=== PATIENT | male | born 1940 | race Caucasian/White ===

== ENCOUNTER 2020-05-12 11:46 | Outpatient (REF) | payer MEDICARE, SELFPAY ==
[2020-05-12 13:56] LABS: Alanine Aminotransferase 27 U/L (0-40); Albumin Level 4.3 g/dL (3.5-5.0); Alkaline Phosphatase 53 U/L (39-117); Anion Gap 12 (12-20); Aspartate Amino Transferase 26 U/L (5-37); Bilirubin Total 0.4 mg/dL (0.0-1.0); Blood Urea Nitrogen 20 mg/dL (9-16); Calcium 9.5 mg/dL (8.4-10.2); Carbon Dioxide 30 mmol/L (22-29); Chloride 99 mmol/L (96-108); Estimated Glomerular Filt Rate 51; Glucose Random 128 mg/dL (60-115); Potassium 3.7 mmol/l (3.3-5.1); Sodium 137 mmol/L (135-145); Total Protein 7.1 g/dL (6.5-8.0)
[2020-05-12 14:01] LABS: Estimated Average Glucose 137 mg/dL; Hemoglobin A1C 151.4465 umol/L; Hemoglobin A1c % 6.4 %
[2020-05-12 14:19] LABS: Free T4 (Free Thyroxine) 1.11 ng/dL (0.71-1.85); Thyroid Stimulating Hormone 0.38 uIU/mL (0.32-4.0); Vitamin D 25-OH Total 39.3 ng/mL (>30)
== END 2020-05-12 11:47 | disposition home or self-care (01) ==
LOC: HO.MANLDS 11:46
PROVIDERS: PCP Internal Medicine; Visit Provider Internal Medicine
DX: E11.9 Type 2 diabetes mellitus without complications (principal); E03.9 Hypothyroidism, unspecified
CPT/HCPCS: 80053; 82306; 83036; 84439; 84443

== ENCOUNTER 2020-07-30 07:29 | Outpatient (REF) | payer MEDICARE, SELFPAY ==
[2020-07-30 11:15] LABS: Estimated Average Glucose 143 mg/dL; Hemoglobin A1c % 6.6 %
[2020-07-30 11:43] LABS: Cholesterol 229 mg/dL; HDL Cholesterol 58 mg/dL; LDL Cholesterol Calculated 152 mg/dl; Triglycerides 97 mg/dL
== END 2020-07-30 07:30 | disposition home or self-care (01) ==
LOC: HO.MANLR 07:29
PROVIDERS: PCP Internal Medicine; Visit Provider Internal Medicine
DX: E11.9 Type 2 diabetes mellitus without complications (principal)
CPT/HCPCS: 36415; 80061; 83036

== ENCOUNTER 2020-11-15 08:39 | Outpatient (REF) | payer MEDICARE, SELFPAY ==
[2020-11-15 11:32] LABS: Hematocrit 40.1 % (42-52); Mean Corpuscular HGB Conc 29.9 g/dl (31.0-36.0); Mean Corpuscular Hemoglobin 25.4 pg (27.0-33.0); Mean Corpuscular Volume 84.8 fL (80-98); Mean Platelet Volume 9.8 fL (9.4-12.4); Platelet Count 265 X10*3/uL (160-400); Red Blood Count 4.73 X10*6/uL (4.60-5.80); Red Cell Distribution Width 14.7 % (11.0-16.0); White Blood Count 5.3 X10*3/uL (4.8-10.8)
[2020-11-15 12:02] LABS: Alanine Aminotransferase 25 U/L (0-40); Albumin Level 4.2 g/dL (3.5-5.0); Alkaline Phosphatase 55 U/L (39-117); Anion Gap 14 (12-20); Aspartate Amino Transferase 24 U/L (5-37); Bilirubin Total 0.6 mg/dL (0.0-1.0); Blood Urea Nitrogen 23 mg/dL (9-16); Calcium 9.6 mg/dL (8.4-10.2); Carbon Dioxide 28 mmol/L (22-29); Chloride 100 mmol/L (96-108); Estimated Glomerular Filt Rate 42; Glucose Fasting 125 mg/dL (60-99); Potassium 3.7 mmol/L (3.3-5.1); Sodium 138 mmol/L (135-145); Total Protein 6.7 g/dL (6.5-8.0)
[2020-11-15 12:10] LABS: Free T4 (Free Thyroxine) 1.02 ng/dL (0.71-1.85); Thyroid Stimulating Hormone 1.33 uIU/mL (0.32-4.0)
[2020-11-15 12:20] LABS: Estimated Average Glucose 143 mg/dL; Hemoglobin A1C 152.6925 umol/L; Hemoglobin A1c % 6.6 %
[2020-11-15 12:47] LABS: Prostate Specific Antigen 4.05 ng/mL (<0.05-4.0)
== END 2020-11-15 08:40 | disposition home or self-care (01) ==
LOC: HO.MANLDS 08:39
PROVIDERS: PCP Internal Medicine; Visit Provider Internal Medicine
DX: E11.9 Type 2 diabetes mellitus without complications (principal); I10 Essential (primary) hypertension; E03.9 Hypothyroidism, unspecified
CPT/HCPCS: 36415; 80053; 83036; 84153; 84439; 84443; 85027

== ENCOUNTER 2021-02-07 08:48 | Outpatient (REF) | payer MEDICARE, SELFPAY ==
[2021-02-07 11:13] LABS: Hematocrit 39.7 % (42-52); Mean Corpuscular HGB Conc 30.2 g/dl (31.0-36.0); Mean Corpuscular Hemoglobin 25.2 pg (27.0-33.0); Mean Corpuscular Volume 83.4 fL (80-98); Mean Platelet Volume 10.1 fL (9.4-12.4); Platelet Count 270 X10*3/uL (160-400); Red Blood Count 4.76 X10*6/uL (4.60-5.80); Red Cell Distribution Width 15.1 % (11.0-16.0); White Blood Count 5.6 X10*3/uL (4.8-10.8)
[2021-02-07 11:21] LABS: Estimated Average Glucose 137 mg/dL; Hemoglobin A1c % 6.4 %
[2021-02-07 12:09] LABS: Alanine Aminotransferase 27 U/L (0-40); Albumin Level 4.3 g/dL (3.5-5.0); Alkaline Phosphatase 49 U/L (39-117); Anion Gap 13 (12-20); Aspartate Amino Transferase 23 U/L (5-37); Bilirubin Total 0.6 mg/dL (0.0-1.0); Blood Urea Nitrogen 20 mg/dL (9-16); Calcium 9.9 mg/dL (8.4-10.2); Carbon Dioxide 28 mmol/L (22-29); Chloride 102 mmol/L (96-108); Estimated Glomerular Filt Rate 43; Glucose Random 138 mg/dL (60-115); Sodium 139 mmol/L (135-145); Total Protein 6.9 g/dL (6.5-8.0)
== END 2021-02-07 08:49 | disposition home or self-care (01) ==
LOC: HO.MANLDS 08:48
PROVIDERS: PCP Internal Medicine; Visit Provider Internal Medicine
DX: E11.9 Type 2 diabetes mellitus without complications (principal)
CPT/HCPCS: 36415; 80053; 83036; 85027

== ENCOUNTER 2021-05-17 08:01 | Outpatient (REF) | payer MEDICARE, SELFPAY ==
[2021-05-17 11:24] LABS: Estimated Average Glucose 140 mg/dL; Hemoglobin A1C 145.6029 umol/L; Hemoglobin A1c % 6.5 %
== END 2021-05-17 08:02 | disposition home or self-care (01) ==
LOC: HO.MANLDS 08:01
PROVIDERS: PCP Internal Medicine; Visit Provider Internal Medicine
DX: E11.9 Type 2 diabetes mellitus without complications (principal)
CPT/HCPCS: 36415; 83036

== ENCOUNTER 2021-08-22 14:56 | Outpatient (REF) | payer MEDICARE, SELFPAY ==
[2021-08-22 20:04] LABS: Estimated Average Glucose 143 mg/dL; Hemoglobin A1c % 6.6 %
== END 2021-08-22 14:57 | disposition home or self-care (01) ==
LOC: HO.MANLDS 14:56
PROVIDERS: PCP Internal Medicine; Visit Provider Internal Medicine
DX: E11.9 Type 2 diabetes mellitus without complications (principal)
CPT/HCPCS: 36415; 83036

== ENCOUNTER 2021-12-19 09:39 | Outpatient (REF) | payer MEDICARE, SELFPAY ==
[2021-12-19 11:31] LABS: MANUAL DIFF FLAG NO
[2021-12-19 11:40] LABS: Basophils Percent Auto 0.3 % (0-2); Eosinophils Absolute Auto 0.2 X10*3/uL (0.0-0.4); Eosinophils Percent Auto 3.6 % (0-4); Hematocrit 38.1 % (42.0-52.0); Hemoglobin 11.3 g/dl (14.0-18.0); Imm Gran Abs Auto 0.01 X10*3/uL (0.00-0.03); Imm Gran Pct Auto 0.2 % (0.0-0.4); Lymphocytes Absolute Auto 1.8 X10*3/uL (1.2-4.9); Lymphocytes Percent Auto 29.3 % (20-40); Mean Corpuscular HGB Conc 29.7 g/dl (31.0-36.0); Mean Corpuscular Hemoglobin 23.3 pg (27.0-33.0); Mean Corpuscular Volume 78.6 fL (80.0-98.0); Mean Platelet Volume 9.4 fL (9.4-12.4); Monocytes Absolute Auto 0.7 X10*3/uL (0.1-1.2); Neutrophils Absolute Auto 3.4 x10*3/uL (2.0-8.3); Neutrophils Percent Auto 55.6 % (45-73); Platelet Count 330 X10*3/uL (160-400); Red Blood Count 4.85 X10*6/uL (4.60-5.80); Red Cell Distribution Width 16.6 % (11.0-16.0); White Blood Count 6.2 X10*3/uL (4.8-10.8)
[2021-12-19 12:48] LABS: Erythrocyte Sedimentation Rate 7 MM/HR (0-15)
[2021-12-19 13:04] LABS: Alanine Aminotransferase 31 U/L (0-40); Albumin Level 4.3 g/dL (3.5-5.0); Alkaline Phosphatase 55 U/L (39-117); Anion Gap 12 (12-20); Aspartate Amino Transferase 33 U/L (5-37); Bilirubin Total 0.4 mg/dL (0.0-1.0); Blood Urea Nitrogen 22 mg/dL (9-16); Calcium 9.6 mg/dL (8.4-10.2); Carbon Dioxide 28 mmol/L (22-29); Chloride 101 mmol/L (96-108); Cholesterol 235 mg/dL; Estimated Glomerular Filt Rate 41; Glucose Random 111 mg/dL (60-115); HDL Cholesterol 55 mg/dL; LDL Cholesterol Calculated 157 mg/dl; Potassium 4.2 mmol/L (3.3-5.1); Sodium 137 mmol/L (135-145); Total Protein 7.1 g/dL (6.5-8.0); Triglycerides 119 mg/dL
[2021-12-19 20:36] LABS: Estimated Average Glucose 137 mg/dL; Hemoglobin A1c % 6.4 %
== END 2021-12-19 09:40 | disposition home or self-care (01) ==
LOC: HO.MANLDS 09:39
PROVIDERS: Visit Provider Internal Medicine
DX: E11.9 Type 2 diabetes mellitus without complications (principal)
CPT/HCPCS: 36415; 80053; 80061; 83036; 85025; 85652

== ENCOUNTER 2022-04-17 14:35 | Outpatient (REF) | payer MEDICARE, SELFPAY ==
[2022-04-17 18:51] LABS: Alanine Aminotransferase 33 U/L (0-40); Albumin Level 4.5 g/dL (3.5-5.0); Alkaline Phosphatase 60 U/L (39-117); Anion Gap 17 (12-20); Aspartate Amino Transferase 31 U/L (5-37); Bilirubin Total 0.2 mg/dL (0.0-1.0); Blood Urea Nitrogen 25 mg/dL (9-16); Calcium 9.9 mg/dL (8.4-10.2); Carbon Dioxide 25 mmol/L (22-29); Chloride 101 mmol/L (96-108); Estimated Glomerular Filt Rate 44; Glucose Random 132 mg/dL (60-115); Potassium 4.2 mmol/L (3.3-5.1); Sodium 139 mmol/L (135-145); Total Protein 7.3 g/dL (6.5-8.0)
[2022-04-18 05:12] LABS: Estimated Average Glucose 134 mg/dL; Hemoglobin A1c % 6.3 %
== END 2022-04-17 14:36 | disposition home or self-care (01) ==
LOC: HO.MANLDS 14:35
PROVIDERS: Visit Provider Internal Medicine
DX: Z12.5 Encounter for screening for malignant neoplasm of prostate (principal); E11.9 Type 2 diabetes mellitus without complications
CPT/HCPCS: 36415; 80053; 83036; 84153

== ENCOUNTER 2022-05-29 09:10 | Outpatient (REF) | payer MEDICARE, SELFPAY ==
[2022-05-29 10:49] LABS: MANUAL DIFF FLAG NO
[2022-05-29 10:57] LABS: Basophils Percent Auto 0.2 % (0-2); Eosinophils Absolute Auto 0.2 X10*3/uL (0.0-0.4); Hematocrit 34.8 % (42.0-52.0); Hemoglobin 10.2 g/dl (14.0-18.0); Imm Gran Abs Auto 0.01 X10*3/uL (0.00-0.03); Imm Gran Pct Auto 0.2 % (0.0-0.4); Lymphocytes Absolute Auto 1.4 X10*3/uL (1.2-4.9); Lymphocytes Percent Auto 23.6 % (20-40); Mean Corpuscular HGB Conc 29.3 g/dl (31.0-36.0); Mean Corpuscular Hemoglobin 22.9 pg (27.0-33.0); Mean Platelet Volume 9.6 fL (9.4-12.4); Monocytes Absolute Auto 0.6 X10*3/uL (0.1-1.2); Neutrophils Absolute Auto 3.8 x10*3/uL (2.0-8.3); Platelet Count 331 X10*3/uL (160-400); Red Blood Count 4.46 X10*6/uL (4.60-5.80); Red Cell Distribution Width 16.5 % (11.0-16.0); White Blood Count 6.1 X10*3/uL (4.8-10.8)
[2022-05-29 11:06] LABS: Iron 28 mcg/dL (45-160); Percent Iron Saturation 6 % (15-50); Total Iron Binding Capacity 451 mcg/dL (228-428); Unsaturated Iron Binding 423 ug/dL
[2022-05-29 11:26] LABS: Ferritin 8 ng/mL (20-250)
== END 2022-05-29 09:11 | disposition home or self-care (01) ==
LOC: HO.MANLDS 09:10
PROVIDERS: Visit Provider Physician Assistant
DX: D50.0 Iron deficiency anemia secondary to blood loss (chronic) (principal)
CPT/HCPCS: 36415; 82728; 83540; 85025

== ENCOUNTER 2022-12-12 08:52 | Outpatient (REF) | payer MEDICARE, SELFPAY ==
[2022-12-12 11:18] LABS: MANUAL DIFF FLAG NO
[2022-12-12 11:35] LABS: Basophils Percent Auto 0.3 % (0-2); Eosinophils Absolute Auto 0.2 X10*3/uL (0.0-0.4); Hemoglobin 9.2 g/dl (14.0-18.0); Imm Gran Abs Auto 0.02 X10*3/uL (0.00-0.03); Imm Gran Pct Auto 0.3 % (0.0-0.4); Lymphocytes Absolute Auto 1.2 X10*3/uL (1.2-4.9); Lymphocytes Percent Auto 20.1 % (20-40); Mean Corpuscular HGB Conc 27.9 g/dl (31.0-36.0); Mean Corpuscular Hemoglobin 21.6 pg (27.0-33.0); Mean Corpuscular Volume 77.6 fL (80.0-98.0); Mean Platelet Volume 9.7 fL (9.4-12.4); Monocytes Absolute Auto 0.7 X10*3/uL (0.1-1.2); Monocytes Percent Auto 10.8 % (2-11); Neutrophils Absolute Auto 3.9 x10*3/uL (2.0-8.3); Neutrophils Percent Auto 64.5 % (45-73); Platelet Count 375 X10*3/uL (160-400); Red Blood Count 4.25 X10*6/uL (4.60-5.80); Red Cell Distribution Width 22.2 % (11.0-16.0)
[2022-12-12 11:50] LABS: Estimated Average Glucose 105 mg/dL; Hemoglobin A1c % 5.3 %
== END 2022-12-12 08:53 | disposition home or self-care (01) ==
LOC: HO.MANLDS 08:52
PROVIDERS: Visit Provider Internal Medicine
DX: K92.2 Gastrointestinal hemorrhage, unspecified (principal); E11.9 Type 2 diabetes mellitus without complications
CPT/HCPCS: 36415; 83036; 85025

== ENCOUNTER 2023-01-16 07:41 | Outpatient (REF) | payer MEDICARE, SELFPAY ==
[2023-01-16 12:52] LABS: MANUAL DIFF FLAG NO
[2023-01-16 13:32] LABS: Basophils Percent Auto 0.2 % (0-2); Eosinophils Absolute Auto 0.3 X10*3/uL (0.0-0.4); Eosinophils Percent Auto 4.7 % (0-4); Hemoglobin 9.3 g/dl (14.0-18.0); Imm Gran Abs Auto 0.01 X10*3/uL (0.00-0.03); Imm Gran Pct Auto 0.2 % (0.0-0.4); Lymphocytes Absolute Auto 1.1 X10*3/uL (1.2-4.9); Mean Corpuscular HGB Conc 28.2 g/dl (31.0-36.0); Mean Corpuscular Hemoglobin 22.9 pg (27.0-33.0); Mean Corpuscular Volume 81.1 fL (80.0-98.0); Mean Platelet Volume 9.7 fL (9.4-12.4); Monocytes Absolute Auto 0.5 X10*3/uL (0.1-1.2); Monocytes Percent Auto 8.6 % (2-11); Neutrophils Absolute Auto 3.8 x10*3/uL (2.0-8.3); Neutrophils Percent Auto 67.3 % (45-73); Platelet Count 281 X10*3/uL (160-400); Red Blood Count 4.07 X10*6/uL (4.60-5.80); Red Cell Distribution Width 20.5 % (11.0-16.0); White Blood Count 5.6 X10*3/uL (4.8-10.8)
[2023-01-16 13:42] LABS: Estimated Average Glucose 105 mg/dL; Hemoglobin A1c % 5.3 %
[2023-01-16 14:21] LABS: Ferritin 8 ng/mL (20-250); Iron 11 mcg/dL (45-160); Percent Iron Saturation 3 % (15-50); Total Iron Binding Capacity 320 mcg/dL (228-428); Unsaturated Iron Binding 309 ug/dL
== END 2023-01-16 07:42 | disposition home or self-care (01) ==
LOC: HO.MANLDS 07:41
PROVIDERS: Visit Provider Internal Medicine
DX: K92.2 Gastrointestinal hemorrhage, unspecified (principal); E11.9 Type 2 diabetes mellitus without complications; D50.0 Iron deficiency anemia secondary to blood loss (chronic)
CPT/HCPCS: 36415; 82728; 83036; 83540; 85025

== ENCOUNTER 2023-03-05 09:25 | Outpatient (REF) | payer MEDICARE, SELFPAY ==
[2023-03-05 13:03] LABS: MANUAL DIFF FLAG NO
[2023-03-05 13:41] LABS: Basophils Percent Auto 0.3 % (0-2); Eosinophils Absolute Auto 0.3 X10*3/uL (0.0-0.4); Eosinophils Percent Auto 4.8 % (0-4); Hematocrit 37.5 % (42.0-52.0); Hemoglobin 10.6 g/dl (14.0-18.0); Imm Gran Abs Auto 0.01 X10*3/uL (0.00-0.03); Imm Gran Pct Auto 0.2 % (0.0-0.4); Lymphocytes Absolute Auto 1.6 X10*3/uL (1.2-4.9); Lymphocytes Percent Auto 25.7 % (20-40); Mean Corpuscular HGB Conc 28.3 g/dl (31.0-36.0); Mean Corpuscular Volume 84.8 fL (80.0-98.0); Mean Platelet Volume 9.9 fL (9.4-12.4); Monocytes Absolute Auto 0.6 X10*3/uL (0.1-1.2); Monocytes Percent Auto 10.1 % (2-11); Neutrophils Absolute Auto 3.6 x10*3/uL (2.0-8.3); Neutrophils Percent Auto 58.9 % (45-73); Platelet Count 274 X10*3/uL (160-400); Red Blood Count 4.42 X10*6/uL (4.60-5.80); Red Cell Distribution Width 20.1 % (11.0-16.0)
[2023-03-05 13:42] LABS: Iron 28 mcg/dL (45-160); Percent Iron Saturation 8 % (15-50); Total Iron Binding Capacity 343 mcg/dL (228-428); Unsaturated Iron Binding 315 ug/dL
[2023-03-05 14:02] LABS: Ferritin 22 ng/mL (20-250)
== END 2023-03-05 09:26 | disposition home or self-care (01) ==
LOC: HO.MANLDS 09:25
PROVIDERS: Visit Provider Internal Medicine
DX: D50.9 Iron deficiency anemia, unspecified (principal)
CPT/HCPCS: 36415; 82728; 83540; 85025

== ENCOUNTER 2023-07-13 11:23 | Outpatient (REF) | payer MEDICARE, SELFPAY ==
[2023-07-13 13:23] LABS: MANUAL DIFF FLAG NO
[2023-07-13 13:44] LABS: Basophils Percent Auto 0.2 % (0-2); Eosinophils Absolute Auto 0.1 X10*3/uL (0.0-0.4); Eosinophils Percent Auto 1.7 % (0-4); Hematocrit 42.3 % (42.0-52.0); Hemoglobin 13.9 g/dl (14.0-18.0); Imm Gran Abs Auto 0.02 X10*3/uL (0.00-0.03); Imm Gran Pct Auto 0.4 % (0.0-0.4); Lymphocytes Absolute Auto 1.1 X10*3/uL (1.2-4.9); Lymphocytes Percent Auto 20.4 % (20-40); Mean Corpuscular HGB Conc 32.9 g/dl (31.0-36.0); Mean Corpuscular Hemoglobin 30.5 pg (27.0-33.0); Mean Platelet Volume 9.5 fL (9.4-12.4); Monocytes Absolute Auto 0.5 X10*3/uL (0.1-1.2); Neutrophils Absolute Auto 3.7 x10*3/uL (2.0-8.3); Neutrophils Percent Auto 68.3 % (45-73); Platelet Count 295 X10*3/uL (160-400); Red Blood Count 4.55 X10*6/uL (4.60-5.80); Red Cell Distribution Width 13.5 % (11.0-16.0); White Blood Count 5.5 X10*3/uL (4.8-10.8)
[2023-07-13 14:05] LABS: Estimated Average Glucose 148 mg/dL; Hemoglobin A1c % 6.8 % (<6.0)
[2023-07-13 14:50] LABS: Alanine Aminotransferase 30 U/L (0-40); Albumin Level 3.6 g/dL (3.5-5.0); Alkaline Phosphatase 95 U/L (39-117); Anion Gap 11 (12-20); Aspartate Amino Transferase 28 U/L (5-37); Bilirubin Total 0.6 mg/dL (0.0-1.0); Blood Urea Nitrogen 17 mg/dL (9-16); Calcium 9.2 mg/dL (8.4-10.2); Carbon Dioxide 27 mmol/L (22-29); Chloride 105 mmol/L (96-108); Estimated Glomerular Filt Rate 57; Glucose Random 120 mg/dL (60-115); Potassium 3.8 mmol/L (3.3-5.1); Sodium 139 mmol/L (135-145); Total Protein 6.7 g/dL (6.5-8.0)
== END 2023-07-13 11:24 | disposition home or self-care (01) ==
LOC: HO.MANLDS 11:23
PROVIDERS: Visit Provider Internal Medicine
DX: E11.9 Type 2 diabetes mellitus without complications (principal); K92.2 Gastrointestinal hemorrhage, unspecified
CPT/HCPCS: 36415; 80053; 83036; 85025

== ENCOUNTER 2023-10-22 08:58 | Outpatient (REF) | payer MEDICARE, SELFPAY ==
[2023-10-22 13:11] LABS: MANUAL DIFF FLAG NO
[2023-10-22 13:24] LABS: Basophils Percent Auto 0.2 % (0-2); Eosinophils Absolute Auto 0.2 X10*3/uL (0.0-0.4); Eosinophils Percent Auto 3.4 % (0-4); Hematocrit 44.3 % (42.0-52.0); Hemoglobin 14.4 g/dl (14.0-18.0); Imm Gran Abs Auto 0.02 X10*3/uL (0.00-0.03); Imm Gran Pct Auto 0.3 % (0.0-0.4); Lymphocytes Absolute Auto 1.4 X10*3/uL (1.2-4.9); Lymphocytes Percent Auto 24.6 % (20-40); Mean Corpuscular HGB Conc 32.5 g/dl (31.0-36.0); Mean Corpuscular Hemoglobin 31.9 pg (27.0-33.0); Monocytes Absolute Auto 0.5 X10*3/uL (0.1-1.2); Neutrophils Absolute Auto 3.6 x10*3/uL (2.0-8.3); Neutrophils Percent Auto 62.5 % (45-73); Platelet Count 222 X10*3/uL (160-400); Red Blood Count 4.52 X10*6/uL (4.60-5.80); Red Cell Distribution Width 13.3 % (11.0-16.0); White Blood Count 5.8 X10*3/uL (4.8-10.8)
[2023-10-22 13:45] LABS: Estimated Average Glucose 137 mg/dL; Hemoglobin A1c % 6.4 % (<6.0)
[2023-10-22 14:01] LABS: Alanine Aminotransferase 46 U/L (0-40); Alkaline Phosphatase 78 U/L (39-117); Anion Gap 12 (12-20); Aspartate Amino Transferase 36 U/L (5-37); Bilirubin Total 0.7 mg/dL (0.0-1.0); Blood Urea Nitrogen 21 mg/dL (9-16); Calcium 9.7 mg/dL (8.4-10.2); Carbon Dioxide 29 mmol/L (22-29); Chloride 102 mmol/L (96-108); Estimated Glomerular Filt Rate 56; Glucose Random 183 mg/dL (60-115); Potassium 3.8 mmol/L (3.3-5.1); Sodium 139 mmol/L (135-145); Total Protein 6.8 g/dL (6.5-8.0)
== END 2023-10-22 08:59 | disposition home or self-care (01) ==
LOC: HO.MANLDS 08:58
PROVIDERS: Visit Provider Internal Medicine
DX: E11.9 Type 2 diabetes mellitus without complications (principal); K92.2 Gastrointestinal hemorrhage, unspecified
CPT/HCPCS: 36415; 80053; 83036; 85025

== ENCOUNTER 2023-11-12 14:45 | Outpatient (REF) | payer MEDICARE, SELFPAY ==
[2023-11-12 17:43] LABS: Appearance Urine Clear; Color Urine Yellow; Glucose Urine UA Negative (Negative); Leukocyte Esterase Urine Moderate (2+) (Negative); Nitrite Urine Negative (Negative); UMIC TRIGGER UACC YES; Urine Blood Negative (Negative); Urine Ketones Negative (Negative); Urine Protein Negative (Neg-Trace)
[2023-11-12 17:46] LABS: Bacteria Urine 3+ (None Seen); Hyaline Casts Urine 0-2 /LPF (0-2); RBC Urine 0-2 /HPF (0-2); Squamous Epithelial Cell Urine 0-2 /HPF (0-2); UACC Culture Trigger YES
== END 2023-11-12 14:46 | disposition home or self-care (01) ==
LOC: HO.MANLNP 14:45
PROVIDERS: Visit Provider Physician Assistant
DX: N39.0 Urinary tract infection, site not specified (principal)
CPT/HCPCS: 81001; 87086; 87088; 87186

== ENCOUNTER 2024-03-26 09:41 | Outpatient (REF) | payer MEDICARE, SELFPAY ==
[2024-03-26 14:27] LABS: Estimated Average Glucose 128 mg/dL; Hemoglobin A1C 157.9159 umol/L; Hemoglobin A1c % 6.1 % (<6.0); Total Hemoglobin (HGBA1C) 3684.1233 umol/L
== END 2024-03-26 09:42 | disposition home or self-care (01) ==
LOC: HO.MANLDS 09:41
PROVIDERS: Visit Provider Internal Medicine
DX: E11.9 Type 2 diabetes mellitus without complications (principal)
CPT/HCPCS: 36415; 83036

== ENCOUNTER 2024-10-29 16:16 | Outpatient (REF) | payer MEDICARE, SELFPAY ==
--- OUTSIDE RECORDS SUMMARY | 2024-10-29 16:34 | XMS_ITS | Clinical Summary ---
Author Organization [address] [place] [address] [place] [phone] Phone Care Team Providers Care Dispatcher Service Chief Name Role Phone Moisés Jimenez DO Primary Care Provider [phone] Allergies Active Allergy Reactions Criticality Noted Date Comments Acetaminophen 06/16/2022 Clindamycin 06/16/2022 Hydrocodone-Guaifenesin 06/16/2022 Tunnel vision, nausea Indomethacin 06/16/2022 Lisinopril 06/16/2022 Metoprolol 06/16/2022 Blue toes Penicillins 06/16/2022 Omfhljl-Ndn-Iiq Reductase Inhibitors Bruising Medium 05/30/2024 Tamsulosin 01/22/2023 Ticagrelor 02/08/2023 Medications alfuzosin (UROXATRAL) 10 mg 24 hr tablet Take 1 Tablet by mouth daily. Active aspirin ([place]) 81 mg capsule Take by mouth. Active CHOLECALCIFEROL , VITAMIN D3, ORAL Take 1,000 mg by mouth daily. Active levothyroxine (SYNTHROID, LEVOTHROID) 100 mcg tablet Take 1 Tablet by mouth daily. Active cyanocobalamin (VITAMIN B-12) 1,000 mcg tablet Take 1 Tablet by mouth daily. Active omeprazole OTC (PriLOSEC OTC) 20 mg EC tablet Take 2 tablets (40 mg total) by mouth 1 (one) time each day. Do not crush, chew, or split. Active alirocumab (Praluent Pen) 75 mg/mL pen injector Inject 1 mL (75 mg total) under the skin every 14 (fourteen) days. 6 Pen 3 06/09/2024 Active amLODIPine (NORVASC) 5 mg tablet TAKE 1 TABLET BY MOUTH DAILY 90 tablet 1 08/25/2024 Active Active Problems Problem Noted Date Diagnosed Date CKD (chronic kidney disease) 06/16/2022 Diabetes ([facility], [facility] V28) 06/16/2022 HLD (hyperlipidemia) 06/16/2022 HTN (hypertension) 06/16/2022 Assessment & Plan (05/30/2024 4:28 PM EST): Orders: CBC and differential; Future CK; Future Comprehensive metabolic panel; Future alirocumab (PRALUENT) pen injector 75 mg CAD (coronary artery disease) 06/14/2022 Assessment & Plan (05/30/2024 4:28 PM EST): Orders: CBC and differential; Future CK; Future Comprehensive metabolic panel; Future alirocumab (PRALUENT) pen injector 75 mg NSTEMI (non-ST elevated myoc ardial infarction) ([facility] V24, [facility] V28) 06/14/2022 Assessment & Plan (05/30/2024 4:28 PM EST): Orders: ECG 12 lead CBC and differential; Future alirocumab (PRALUENT) pen injector 75 mg Encounters Date Type Department Care Team Description 08/25/2024 Telephone [facility] [address] [facility] [address] [place] [address] Alexandre Donato MD Med Refill from Last 3 Months Immunizations Name Administration Dates Next Due Pfizer SARS-CoV-2 COVID-19, mRNA, LNP-S, preservative free 08/23/2020 Family History Medical History Relation Name Comments CABG Father Relation Name Status Comments Father Social History Tobacco Use Types Packs/Day Years Used Date Smoking Tobacco: Former Cigarettes S tarted: 1987 Smokeless Tobacco: Never Alcohol Use Standard Drinks/Week Comments Yes 0 (1 standard drink = 0.6 oz pur e alcohol) Sex and Gender Information Value Date Recorded Sex Assigned at Not on file Legal Sex Male 8:38 PM EST Gender Identity Not on file Sexual Orientation Not on file Obstetrics History Last Filed Vital Signs Vital Sign Reading Time Taken Comments Blood Pressure 130/76 05/30/2024 8:56 AM EST Pulse 83 05/30/2024 8:56 AM EST Temperature - - Respiratory Rate - - Oxygen Saturation 96% 05/30/2024 8:56 AM EST Inhaled Oxygen Concentration - - Weight 80.6 kg (177 lb 12.8 oz) 05/30/2024 8:56 AM EST Height 172.7 cm (5' 8 ) 05/30/2024 8:56 AM EST Body Mass Index 27.03 05/30/2024 8:56 AM EST Plan of Treatment Upcoming Encounters Date Type Department Care Team (Late st Contact Info) Description 11/26/2024 8:40 AM EDT Office Visit [facility] [address] [place] [address] Ivy Nichole NP [address] [place] [address] Health Maintenance Due Date Last Done Comments Diabetes: Annual Foot Exam 1950 Diabetes: Annual Retina Eye Exam 1950 Pneumococcal Vaccine: 50+ Years (2 of 2 - PCV) 03/18/2017 03/18/2016 Cholesterol Screening (Lipid Panel) 07/20/2023 Depression Screening 07/20/2023 Falls Risk Assessment 07/20/2023 Medicare Annual Wellness Visit 07/20/2023 Social Influencers of Health Screening 07/20/2023 Diabetes: Annual Urine Albumin-Creatinine Ratio (uACR) 08/08/2023 Diabetes: Blood Sugar Control Test (HGBA1C) 08/08/2023 COVID-19 Vaccine ( season) 2024 03/25/2022, 10/13/2021, 04/03/2021, Additional history exists Diabetes: Annual GFR (Glomerular Filtration Rate) 05/30/2025 05/30/2024, 12/13/2022 Hypertension/CHF/CAD Annual BMP Blood Test 05/30/2025 05/30/2024, 12/13/2022 DTaP,Tdap,and Td Vaccines (2 - Td or Tdap) 09/08/2030 09/08/2020 Zoster Vaccines Completed 01/17/2019, 11/04/2018 RSV Immunization Adult Patients Completed 05/18/2023, 04/03/2023 Influenza Vaccine Completed 03/28/2024, , 03/25/2022, Additional history exists HIB Vaccines Aged Out No longer eligi ble based on patient's age to complete this topic HPV Vaccines Aged Out No longer eligi ble based on patient's age to complete this topic Hepatitis A Vaccines Aged Out No long er eligible based on patient's age to complete this topic Hepatitis B Vaccines Aged Out No long er eligible based on patient's age to complete this topic IPV Vaccines Aged Out No longer eligi ble based on patient's age to complete this topic MMR Vaccines Aged Out No longer eligi ble based on patient's age to complete this topic Meningococcal ACWY Vaccine Aged Out N o longer eligible based on patient's age to complete this topic Meningococcal B Vaccine Aged Out No l onger eligible based on patient's age to complete this topic RSV Immunization Patients Under 20 months Aged Out No longer eligible based on patient's age to complete this topic Varicella Vaccines Aged Out No longer eligible based on patient's age to complete this topic Procedures Procedure Name Priority Date/Time Associated Diagnosis Comments COMPREHENSIVE METABOLIC PANEL Routine 05/30/2024 9:45 AM EST Primary hypertension Coronary artery disease involving [place] coronary artery of [place] heart without angina pectoris from Last 3 Months or Most Recently Relevant to Health Maintenance Results * (ABNORMAL) Comprehensive metabolic panel (05/30/2024 9:45 AM EST) Sodium 138 133 - 145 mmol/L LAB CHEMISTRY METHOD 05/30/2024 2:35 PM EST [facility] Potassium 4.3 3.5 - 5.5 mmol/L LAB CHEMISTRY METHOD 05/30/2024 2:35 PM EST [facility] Chloride 105 96 - 110 mmol/L LAB CHEMISTRY METHOD 05/30/2024 2:35 PM EST [facility] CO2 28 21 - 32 mmol/L LAB CHEMISTRY METHOD 05/30/2024 2:35 PM EST [facility] Anion Gap 5 3 - 11 LAB CHEMISTRY METHOD 05/30/2024 2:35 PM [facility] Glucose 136(H) 70 - 100 mg/dL LAB CHEMISTRY METHOD 05/30/2024 2:35 PM [facility] BUN 23 5 - 25 mg/dL LAB CHEMISTRY METHOD 05/30/2024 2:35 PM [facility] Creatinine 1.36(H) 0.70 - 1.30 mg/dL LAB CHEMISTRY METHOD 05/30/2024 2:35 PM [facility] eGFR 52(L) >=60 mL/min/1. 73m2 LAB CHEMISTRY METHOD 05/30/2024 2:35 PM [facility] Comment:Calculation based on the??Chronic Kidney Disease Epidemiology Collaboration (CKD-EPI) equation refit??without adjustment for race. BUN/Creatinine Ratio 16.9 LAB CHEMISTRY METHOD 05/30/2024 2:35 PM [facility] Calcium 9.7 8.5 - 10.5 mg/dL LAB CHEMISTRY METHOD 05/30/2024 2:35 PM [facility] AST (SGOT) 19 10 - 42 unit/L LAB CHEMISTRY METHOD 05/30/2024 2:35 PM [facility] ALT (SGPT) 27 10 - 60 unit/L LAB CHEMISTRY METHOD 05/30/2024 2:35 PM [facility] Alkaline Phosphatase 67 42 - 121 unit/L LAB CHEMISTRY METHOD 05/30/2024 2:35 PM [facility] Total Protein 6.8 6.0 - 8.0 g/dL LAB CHEMISTRY METHOD 05/30/2024 2:35 PM [facility] Albumin 3.9 3.2 - 5.0 g/dL LAB CHEMISTRY METHOD 05/30/2024 2:35 PM [facility] Total Bilirubin 0.8 0.0 - 1.4 mg/dL LAB CHEMISTRY METHOD 05/30/2024 2:35 PM EST [facility] Blood Venous blood specimen / Unknown Venipuncture / Unknown 05/30/2024 9:45 AM EST 05/30/2024 9:45 AM EST us Alexandre Donato MD LAB BLOOD ORDERABLES Radha stone Result [facility] ([facility] [address] [place] [address], from Last 3 Months or Most Recently Relevant to Health Maintenance Insurance MEDICARE Care Teams Dispatcher Service Chief Relationship Specialty Start Date End Date Moisés Jimenez DO [address] [facility] [address] [place], [place] PCP - General 05/04/22
--- OUTSIDE RECORDS SUMMARY | 2024-10-29 16:34 | XMS_ITS | Clinical Summary ---
Author Organization [facility] Address [address] [facility] [address] [place] [address] Phone Care Team Providers Care Laborer Adjustable Steel Joist Name Role Phone Moisés Jimenez DO Primary Care Provider [phone] Allergies Active Allergy Reactions Criticality Noted Date Comments Acetaminophen 09/18/2018 Clindamycin 09/18/2018 Hydrocodone-Acetaminophen 09/18/2018 Lisinopril 09/18/2018 Metoprolol 09/18/2018 Penicillins 09/18/2018 Simvastatin 09/18/2018 Medications amLODIPine (NORVASC) 5 MG tablet Take 10 mg by mouth in the morning. Active aspirin (ST MITUL) 81 MG EC tablet Take 1 tablet by mouth Active cholecalciferol (VITAMIN D-3) 25 MCG (1000 UT) capsule 1 capsule Active cyanocobalamin (VITAMIN B-12) 100 MCG tablet Take 100 mcg by mouth in the morning. Active fluticasone (FLONASE) 50 MCG/ACT nasal spray INSTILL 2 SPRAYS INTO EACH NOSTRIL ONCE DAILY AT BEDTIME Active atorvastatin (LIPITOR) 80 MG tablet Take 80 mg by mouth 1 (one) time each day Active levothyroxine (SYNTHROID, LEVOTHROID) 100 MCG tablet Take 100 mcg by mouth 1 (one) time each day 01/12/2023 Active ferrous sulfate 325 (65 Fe) MG EC tablet Take 1 tablet by mouth 1 (one) time each day 11/14/2022 Active colchicine 0.6 MG tablet 3 (three) times a day 02/12/2023 Active clopidogrel (PLAVIX) 75 MG tablet Take 75 mg by mouth 1 (one) time each day 01/25/2023 Active alfuzosin (UROXATRAL) 10 MG 24 hr tablet Take 1 tablet by mouth 1 (one) time each day 02/15/2023 Active Hospital, Clinic, or Other Facility Administered Medication Ordered Dose Route Frequency Start Date End Date Status ferumoxytol (FERAHEME) injection 510 mgIndications:Other iron deficiency anemia 510 mg IV Once in dialysis 08/23/2022 Active ferumoxytol (FERAHEME) injection 510 mgIndications:Iron deficiency anemia, not otherwise specified 510 mg IV Once in dialysis 09/14/2022 Active Active Problems Problem Noted Date Diagnosed Date Hiatal hernia 07/17/2022 Anemia 05/16/2022 Chronic kidney disease 05/16/2022 Myocardial infarction 05/16/2022 Rupture of rotator cuff of left shoulder 022 Pain of left shoulder joint 03/07/2022 Psoriasis 09/06/2020 Diabetic peripheral neuropathy 03/10/2019 Gout 11/11/2018 External hemorrhoid 09/19/2018 Aneurysm of infrarenal abdominal aorta 9 Benign prostatic hyperplasia 09/18/2018 Gastroesophageal reflux disease 09/18/2018 Herpes zoster 09/18/2018 Hyperlipidemia 09/18/2018 Hypertension 09/18/2018 Hypothyroidism 09/18/2018 Raynaud's disease 09/18/2018 Type 2 diabetes mellitus 09/18/2018 Postnasal drip 09/12/2017 Injury of popliteal artery 09/12/2017 Resolved Problems Problem Noted Date Diagnosed Date Resolved Date Cataract 09/18/2018 08/14/2022 Vitreous detachment of left eye 09/18/2018 08/14/2022 Immunizations Immunization Administration Dates Next Due Influenza, Quadrivalent, Wit h Preservative 03/03/2021,03/02/2020,04/08/2019,2017 Pfizer SARS-COV-2 10/13/2021,,08/23/2020,2020 Tdap 09/08/2020 Zoster 01/17/2019,11/04/2018 Family History Medical History Relation Comments Hypertension Father Relation Status Comments Father Social History Tobacco Use Types Packs/Day Years Used Date Smoking Tobacco: Former Cigarettes Smokeless Tobacco: Former Tobacco Cessation:Counseling Given: Not Answered Alcohol Use Standard Drinks/Week Comments Yes 0 (1 standard drink = 0.6 oz pur e alcohol) Sex and Gender Information Value Date Recorded Sex Assigned at Not on file Legal Sex Male 10:55 AM EST Gender Identity Not on file Sexual Orientation Not on file Last Filed Vital Signs Vital Sign Reading Time Taken Comments Blood Pressure 130/70 02/19/2023 3:13 PM EDT Pulse 92 02/19/2023 3:13 PM EDT Temperature - - Respiratory Rate - - Oxygen Saturation 95% 08/15/2022 4:31 PM EST Inhaled Oxygen Concentration - - Weight 79.6 kg (175 lb 6.4 oz) 02/19/2023 3:13 P M EDT Height - - Body Mass Index - - Plan of Treatment Health Maintenance Due Date Last Done Comments Pneumococcal Vaccine: 50+ Years (1 of 2 - PCV) 1959 Diabetes: Hemoglobin A1C 05/04/2022 Diabetes: Ophthalmology Exam 05/04/2022 Diabetes: Pedal Pulse Checked 05/04/2022 Diabetes: Sensory Foot Exam 05/04/2022 Diabetes: Visual Foot Exam 05/04/2022 Influenza Vaccine (Season Ended) 2025 03/25/2022, 03/03/2021, 03/02/2020, Additional history exists Hepatitis B Vaccine Aged Out No longe r eligible based on patient's age to complete this topic Insurance [facility] Medicare [facility] Medicare Care Teams Laborer Adjustable Steel Joist Relationship Specialty Start Date End Date Moisés Jimenez DO [address] [place] [id number] PCP - General Internal Medicine 05/23/22
[2024-10-29 18:07] LABS: MANUAL DIFF FLAG NO
[2024-10-29 18:18] LABS: Basophils Percent Auto 0.3 % (0-2); Eosinophils Absolute Auto 0.2 X10*3/uL (0.0-0.4); Eosinophils Percent Auto 3.1 % (0-4); Hematocrit 44.2 % (42.0-52.0); Imm Gran Abs Auto 0.02 X10*3/uL (0.00-0.03); Imm Gran Pct Auto 0.3 % (0.0-0.4); Lymphocytes Absolute Auto 1.5 X10*3/uL (1.2-4.9); Lymphocytes Percent Auto 24.9 % (20-40); Mean Corpuscular HGB Conc 31.7 g/dl (31.0-36.0); Mean Corpuscular Hemoglobin 28.2 pg (27.0-33.0); Mean Corpuscular Volume 89.1 fL (80.0-98.0); Mean Platelet Volume 9.9 fL (9.4-12.4); Monocytes Absolute Auto 0.6 X10*3/uL (0.1-1.2); Monocytes Percent Auto 8.9 % (2-11); Neutrophils Absolute Auto 3.8 x10*3/uL (2.0-8.3); Neutrophils Percent Auto 62.5 % (45-73); Platelet Count 230 X10*3/uL (160-400); Red Blood Count 4.96 X10*6/uL (4.60-5.80); Red Cell Distribution Width 15.9 % (11.0-16.0); White Blood Count 6.2 X10*3/uL (4.8-10.8)
[2024-10-29 18:44] LABS: Alanine Aminotransferase 30 U/L (0-40); Albumin Level 4.2 g/dL (3.5-5.0); Alkaline Phosphatase 61 U/L (39-117); Anion Gap 10 (12-20); Aspartate Amino Transferase 30 U/L (5-37); Bilirubin Total 0.4 mg/dL (0.0-1.0); Blood Urea Nitrogen 23 mg/dL (9-16); Calcium 9.5 mg/dL (8.4-10.2); Carbon Dioxide 28 mmol/L (22-29); Chloride 106 mmol/L (96-108); Cholesterol 179 mg/dL (<200); Estimated Glomerular Filt Rate 53; Glucose Random 149 mg/dL (60-115); HDL Cholesterol 63 mg/dL (>40); Iron 34 mcg/dL (45-160); LDL Cholesterol Calculated 96 mg/dL (<100); Percent Iron Saturation 9 % (15-50); Potassium 3.9 mmol/L (3.3-5.1); Sodium 140 mmol/L (135-145); Total Iron Binding Capacity 368 mcg/dL (228-428); Total Protein 6.8 g/dL (6.5-8.0); Triglycerides 102 mg/dL (<150); Unsaturated Iron Binding 334 ug/dL
[2024-10-29 19:00] LABS: Ferritin 16 ng/mL (20-250); Thyroid Stimulating Hormone 1.92 uIU/mL (0.32-4.0)
[2024-10-30 05:26] LABS: Estimated Average Glucose 143 mg/dL; Hemoglobin A1C 173.8015 umol/L; Hemoglobin A1c % 6.6 % (<6.0); Total Hemoglobin (HGBA1C) 3612.8528 umol/L
== END 2024-10-29 16:17 | disposition home or self-care (01) ==
LOC: HO.MANLDS 16:16
PROVIDERS: Visit Provider Internal Medicine
DX: I10 Essential (primary) hypertension (principal); E78.00 Pure hypercholesterolemia, unspecified; E03.8 Other specified hypothyroidism; D50.9 Iron deficiency anemia, unspecified; R73.01 Impaired fasting glucose
CPT/HCPCS: 36415; 80053; 80061; 82728; 83036; 83540; 84443; 85025

== ENCOUNTER 2025-06-02 07:47 | Emergency (ER) | payer MEDICARE, SELFPAY ==
[2025-06-02 07:57] VITALS: BP 168/84; PULSE 87; RESP 18; TEMP 36.3; O2SAT 97; BMI 29.0
--- NOTE | 2025-06-02 09:15 | ED_ITS ---
HPI - General Adult General Chief complaint: Epistaxis Stated complaint: Nosebleed Time Seen by Provider: 06/02/25 09:04 Source: patient and family Mode of arrival: ambulatory Limitations: no limitations History of Present Illness ED Provider: GOLDEN Rogers HPI narrative: Chief Complaint: ?My nose has been bleeding since about 6:45 this morning and it?s not stopping.? History of Present Illness: 84-year-old male with a history of hyperlipidemia and hypertension presents to the Emergency Department for persistent left-sided epistaxis that began around 06:45 today after blowing his nose. He has applied a nasal clamp continuously since onset and has kept the clamp on ever since. He also attempted an intranasal spray of Afrin without relief. He reports similar nosebleeds in the past that typically self-resolved; however, today the bleeding has been persistent. He takes aspirin daily but no other anticoagulants. Related Data Allergies Allergy/AdvReac Type Severity Reaction Status Date / Time acetaminophen Allergy Nausea Verified 06/02/25 08:05 atorvastatin Allergy Unknown Verified 06/02/25 08:05 clindamycin Allergy Rash Verified 06/02/25 08:05 hydrocodone (From Vicodin) Allergy Nausea Verified 06/02/25 08:05 indomethacin Allergy Altered Verified 06/02/25 08:05 Sense of Taste Penicillins Allergy Rash Verified 06/02/25 08:05 rosuvastatin Allergy Unknown Verified 06/02/25 08:05 lisinopril AdvReac Unknown Verified 06/02/25 08:05 metoprolol AdvReac Unknown Verified 06/02/25 08:05 ticagrelor (From Brilinta) AdvReac Unknown Verified 06/02/25 08:05 Review of Systems 2 Review of Systems: Review of Systems: ? HEENT: Positive for left-sided epistaxis. ? All other systems?no additional review was discussed during today?s encounter. Yes all other systems are reviewed and are negative PMFSH Past Medical History Attestation statement: The following information was validated with the patient. Source: old records reviewed and nursing notes reviewed Social History Social History Advance Directives: Yes Advance Directives Information Provided: Yes Advance Directives on File: No Physical Exam ED Exam Exam: Appearance: Alert.? Oriented X3.? No acute distress.? Head: Normocephalic, atraumatic, no step-offs or deformities Eyes: Pupils equal, round and reactive to light.? ENT: Pharynx normal.?+ bleeding from left nares Neck: Normal inspection.? Neck supple.? CVS: Normal heart rate and rhythm.? Pulses normal.? Respiratory: No respiratory distress.? Breath sounds normal.? Abdomen: Soft and nontender.? Skin: Skin warm and dry.? Normal skin color.? Normal skin turgor.? Extremities: No lower extremity edema.? No calf ttp. 5/5 strength to bilateral upper and lower extremities Back: No midline tenderness, no C-spine tenderness, full range of motion, no CVA tenderness bilaterally Neuro: Oriented X 3.? No motor deficit.? No sensory deficit. CN 2-12 intact Vital Signs: Vital Signs - 24 hr 06/02/25 07:57 06/02/25 10:20 Temperature 97.3 F 97.6 F Pulse Rate 87 86 Respiratory Rate 18 15 Blood Pressure 168/84 H 135/93 H Pulse Oximetry 97 96 Oxygen Delivery Method Room Air Room Air BMI result Body Mass Index 29.0 vss Course Reevaluation(s) Reevaluation #1: After administration of TXA to the left nostril no longer bleeding. Will observe patient for at least 35 minutes to ensure no bleeding. Time: 09:56 Reevaluation #2: CBC unremarkable no signs of anemia. Chemistry with no acute electrolyte abnormalities needing intervention it appears as though he has a slight increase in BUN and creatinine at baseline Time: 09:57 Reevaluation #3: Epistaxis stopped Plan- dc home w/ ENT follow up Time: 10:41 Medications Administered Discontinued Medications Generic Name Dose Route Start Last Admin Trade Name Freq PRN Reason Stop Dose Admin Tranexamic Acid 500 mg 06/02/25 09:13 06/02/25 09:45 Tranexamic Acid 1,000 Mg/10 Ml Vial INTRANASAL 06/02/25 09:14 500 mg ONCE ONE Administration Medical Decision Making Medical Decision Making [facility] Narrative: 917 84-year-old male with persistent left-sided epistaxis. Problem #1: Epistaxis (left nostril) Assessment: Ongoing anterior epistaxis since this morning, not responsive to patient-initiated Afrin spray. Patient is hemodynamically stable. Risk factors include daily aspirin use. Plan: * Administer intranasal TXA with nasal clamping. * Continue ED observation and reassess for bleeding control. No additional active problems discussed today. Differential Diagnosis Differential Diagnoses: The differential diagnosis associated with the presentation includes Admission/Observation Consideration of admission/observation: Escalation of care including admission/observation considered (unlikely ) Lab Data [facility] Lab Attestation statement: I reviewed the patient's lab results. 06/02/25 09:18 06/02/25 09:18 Labs: Lab Results 06/02/25 Range/Units 09:18 WBC 4.7 L (4.8-10.8) X10*3/uL RBC 5.29 (4.60-5.80) X10*6/uL Hgb 15.1 (14.0-18.0) g/dl Hct 47.6 (42.0-52.0) % MCV 90.0 (80.0-98.0) fL MCH 28.5 (27.0-33.0) pg MCHC 31.7 (31.0-36.0) g/dl RDW 14.3 (11.0-16.0) % Plt Count 203 (160-400) X10*3/uL MPV 9.0 L (9.4-12.4) fL Immature Gran % (Auto) 0.2 (0.0-0.4) % Neut % (Auto) 63.9 (45-73) % Lymph % (Auto) 20.9 (20-40) % Grayson % (Auto) 10.6 (2-11) % Eos % (Auto) 4.0 (0-4) % Baso % (Auto) 0.4 (0-2) % Lymph # (Auto) 1.0 L (1.2-4.9) X10*3/uL Grayson # (Auto) 0.5 (0.1-1.2) X10*3/uL Eos # (Auto) 0.2 (0.0-0.4) X10*3/uL Baso # (Auto) 0.0 (0.0-0.2) X10*3/uL Abs Immat Gran (auto) 0.01 (0.00-0.03) X10*3/uL Absolute Neuts (auto) 3.0 (2.0-8.3) x10*3/uL Absolute Nucleated RBC 0.000 (0.0-0.012) X10*3/uL Nucleated RBC % (auto) 0.0 (0.0-0.2) /100WBC Sodium 141 (135-145) mmol/L Potassium 4.2 (3.3-5.1) mmol/L Chloride 104 (96-108) mmol/L Carbon Dioxide 30 H (22-29) mmol/L Anion Gap 11 L (12-20) BUN 18 H (9-16) mg/dL Creatinine 1.33 (0.5-1.4) mg/dL Estim Creat Clear Calc 45.0 Estimated GFR 51 Random Glucose 141 H (60-115) mg/dL Calcium 9.7 (8.4-10.2) mg/dL Total Bilirubin 0.6 (0.0-1.0) mg/dL AST 40 H (5-37) U/L ALT 40 (0-40) U/L Alkaline Phosphatase 57 (39-117) U/L Total Protein 7.3 (6.5-8.0) g/dL Albumin 4.6 (3.5-5.0) g/dL Chronic Conditions Patient?s care impacted by: Other Critical Care Time Critical Care Time Critical Care Time: Yes Total Critical Care Time: 35 Attestation: I attest to this time spent taking care of the patient, obtaining history, physical, reviewing labs, imaging, treatment of patients condition +/- specialist/hospitalist consult +/- procedure Discharge Plan Discharge Clinical Impression: Epistaxis Patient Disposition: Home, Self-Care Instructions: Nosebleed (ED) Additional Instructions: Take your medications as prescribed. If you were prescribed antibiotics today, it is important that you take your medication to their entirety, do not skip any doses, do not finish them early. Follow-up with your primary care provider this week. Return to the emergency department with new or worsening symptoms. Such as fevers, chills, chest pain, shortness of breath, nausea, vomiting, dizziness, headache, vision changes, lethargy In case of emergency call 911 Referrals: [facility] [Provider Group, Ear, Nose, Throat] - 1 week Stand Alone Forms: Work/School Release Print Language: Occitan
[2025-06-02 09:23] LABS: MANUAL DIFF FLAG NO
[2025-06-02 09:26] LABS: Hematocrit 47.6 % (42.0-52.0); Hemoglobin 15.1 g/dl (14.0-18.0); Imm Gran Abs Auto 0.01 X10*3/uL (0.00-0.03); Imm Gran Pct Auto 0.2 % (0.0-0.4); Lymphocytes Absolute Auto 1.0 X10*3/uL (1.2-4.9); Mean Corpuscular HGB Conc 31.7 g/dl (31.0-36.0); Mean Corpuscular Hemoglobin 28.5 pg (27.0-33.0); Mean Corpuscular Volume 90.0 fL (80.0-98.0); NRBC Abs Auto 0.000 X10*3/uL (0.0-0.012); NRBC Pct Auto 0.0 /100WBC (0.0-0.2); Platelet Count 203 X10*3/uL (160-400); Red Blood Count 5.29 X10*6/uL (4.60-5.80); White Blood Count 4.7 X10*3/uL (4.8-10.8)
[2025-06-02 09:39] LABS: Albumin Level 4.6 g/dL (3.5-5.0); Alkaline Phosphatase 57 U/L (39-117); Anion Gap 11 (12-20); Aspartate Amino Transferase 40 U/L (5-37); Blood Urea Nitrogen 18 mg/dL (9-16); Calcium 9.7 mg/dL (8.4-10.2); Carbon Dioxide 30 mmol/L (22-29); Chloride 104 mmol/L (96-108); Creatinine Clr Calc Pharmacy 45.0; Estimated Glomerular Filt Rate 51; Potassium 4.2 mmol/L (3.3-5.1); Sodium 141 mmol/L (135-145); Total Protein 7.3 g/dL (6.5-8.0)
[2025-06-02] MEDS: Tranexamic Acid 1,000 MG/10 ML VIAL 500 MG INTRANASAL (09:45)
[2025-06-02 09:51] LABS: Alanine Aminotransferase 40 U/L (0-40)
[2025-06-02 10:20] VITALS: BP 135/93; PULSE 86; RESP 15; TEMP 36.4; O2SAT 96
[2025-06-02 10:44] VITALS: BP 135/93; PULSE 86; RESP 15; TEMP 36.4; O2SAT 96
== END 2025-06-02 10:45 | disposition home or self-care (01) ==
PROVIDERS: Physician Assistant; Emergency Provider Emergency Medicine Emergency Medical Services; PCP Internal Medicine
DX: R04.0 Epistaxis (principal); E78.5 Hyperlipidemia, unspecified; I10 Essential (primary) hypertension
CPT/HCPCS: 36415; 80053; 85025; 99283; J2151